=== PATIENT | female | born 1975 | race Caucasian/White ===

== ENCOUNTER 2016-04-08 07:30 | Outpatient (RCR) | payer BC ==
--- NOTE | 2016-03-18 09:22 | PT/OT/ST INITIAL EVALUATION ---
[facility], [facility]. PHYSICAL/OCCUPATIONAL THERAPY [address] [place], [place] [id number] PLAN OF CARE/ASSESSMENT FOR OUTPATIENT REHABILITATION (Complete for Initial Claims Only) 1. PATIENT'S NAME Ale Cummins 2. ACC. No [id number] 3. PRIMARY DX Status post ORIF, left fibula 4. SECONDARY DX Limited range of motion and strength at left ankle 5. ONSET DATE 11/17/2015 6. REFERRAL DATE 03/07/2016 7. SOC. DATE/TIME 03/14/2016 13:00 8. PRIOR LEVEL OF FUNCTION; PERTINENT HISTORY (Prior therapy results, reason for referral.) S: The patient was referred to physical therapy by Dr. Valeriano Orozco in [place] with the diagnosis of status post left ankle ORIF. The patient reports that she had fractured her left fibula when roller blading on November 15, 2015. She then underwent surgery on November 17, 2015. The goal for therapy is for range of motion and strengthening. The patient notes that she has been attempting to rehab and strengthen the ankle on her own; however, she still feels she is limited with movement due to pain. 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 Overall health rating: Rates overall health as fair. Current pain rating is 3/10. The patient notes that she still has increased unsteadiness and is uncomfortable to hop or perform any type of running. The patient notes that the pain radiates up the outside of her left leg. Past medical history includes bone fractures, stomach problems, hysterectomy, appendectomy, gallbladder surgery. Medication includes Advil or ibuprofen as needed. The patient's goal for therapy is not to have any more discomfort. 9. INITIAL ASSESSMENT/SAFETY PRECAUTIONS/MEDICAL COMPLICATIONS (Level of function at start of care. Be specific, use objective measures, list problems.) O: APPEARANCE: The patient is a 41-year-old female. She ambulates into physical therapy with a normal gait pattern. No significant asymmetry is noted. Upon appearance of left and right ankle, she does demonstrate mild swelling at her left and medial malleolar region. An incision is noted at her left lateral malleoli approximately 4 inches in length. The patient reports a plate and 6 screws were placed there. GIRTH MEASUREMENT: Right ankle 49.7 cm and left 50.5 cm, figure-of-8 measurement. RANGE OF MOTION/FLEXIBILITY: Right ankle dorsiflexion 16 degrees, plantar flexion 53 degrees, inversion 44 degrees and inversion 18 degrees. Left ankle dorsiflexion 4 degrees, plantar flexion 47 degrees, inversion 32 degrees, and eversion 16 degrees. After treatment, the patient did attain 10 degrees plantar flexion at left ankle. JOINT MOBILITY: The patient demonstrated limited joint mobility at distal end of her fibula and also with anterior and posterior glides of her ankle. STRENGTH: Right ankle strength was 5/5 manual muscle test with all motions and directions. Left ankle strength dorsiflexion 4+/5 manual muscle test, plantar flexion 5/5 manual muscle test, inversion 4+/5 manual muscle test, and eversion 5/5 manual muscle test. FUNCTIONAL ACTIVITIES: The patient has difficulty descending stairs due to strength and control. The patient also has some unsteadiness when performing single leg balance on the left. TODAY'S TREATMENT: Included initial evaluation followed by gentle manual mobilization and stretching to the patient's left ankle. The patient was instructed on a home exercise program for gentle stabilization and light strengthening exercises. The patient educated on overall diagnosis and outcomes. 10. INITIAL POC: (Specify procedures, modalities, short and fpc goals) A: PROGNOSIS: The patient is a good candidate for physical therapy to regain range of motion, flexibility, stabilization and strength. GOALS: 1. The patient to be compliant with home exercise program in 2 week. 2. The patient to demonstrate 14 degrees dorsiflexion at left ankle in 3 weeks. 3. The patient to be able to ascend and descend stairs alternating steps with good stability and control in 4 weeks. 4. The patient to demonstrate full ankle strength in all directions without pain in 4 weeks. 5. The patient to report that she is able to return to normal activities and exercise in 6 weeks without having pain at her ankle. PLAN: The patient will be seen 2 times a week over the next 3 weeks as ordered. May continue progress patient with range of motion, stabilization, and strengthening activities for up to 6 weeks if necessary. Treatment to include modalities and manual therapy as necessary to decrease pain and inflammation. 11. PHYSICIAN SIGNATURE ? ON FILE OR ENTER HERE: 12. DATE: I certify the need for these services furnished under this plan of care and if for partial hospitalization. 13. CERTIFICATION FROM THROUGH
== END 2016-04-10 09:06 | disposition home or self-care (01) ==
LOC: PT 07:30
PROVIDERS: ATTEND Orthopaedic Surgery
DX: S82.832D Other fracture of upper and lower end of left fibula, subsequent encounter for closed fracture with routine healing (principal); Y93.51 Activity, roller skating (inline) and skateboarding